=== PATIENT | male | born 1985 | race Caucasian/White ===

== ENCOUNTER 2017-01-16 08:21 | Outpatient (CLI) | payer OTHER | END 2017-01-16 08:22 | disposition home or self-care (01) | DX: Z00.00 Encounter for general adult medical examination without abnormal findings (principal); M25.551 Pain in right hip; M25.561 Pain in right knee; F10.20 Alcohol dependence, uncomplicated ==

== ENCOUNTER 2022-11-29 22:08 | Outpatient (CLI) | payer BC ==
--- NOTE | 2022-11-30 08:13 | Ultrasound Report ---
PROCEDURE: Abdomen Complete INDICATIONS: RLQ ABDOMINAL PAIN TECHNIQUE: Real-time scanning was performed of the abdominal and retroperitoneal organs, with image documentatio n. COMPARISON: None. FINDINGS: Liver: Mildly increased liver echogenicity without posterior attenuation, probably mild hepatic steat osis. Gallbladder: Unremarkable. Biliary ducts: Intrahepatic bile ducts are non-dilated. Extrahepatic bile duct caliber measures 5 m m. Normal is 6-7 mm or less in diameter, or 10 mm or less post-cholecystectomy. Pancreas: Not well visualized due to overlying bowel gas. Spleen: Spleen is normal in size and homogeneous in echotexture. Kidneys: Kidneys are normal in size and echotexture. Right kidney measures 10.9 cm long; left kidne y measures 11.7 cm long. No hydronephrosis or nephrolithiasis. No solid masses. Aorta: Visualized aorta is normal in caliber at less than 3 cm. Iliacs: Proximal common iliac arteries are normal in caliber at less than 2.5 cm. IVC: Intrahepatic inferior vena cava is patent. Miscellaneous: No free abdominal fluid. IMPRESSION: No acute abnormality. Suspect mild hepatic steatosis. Reviewed by: Blaise Auguste on 11/30/2022 8:12 AM [facility] Approved by: Blaise Auguste on 11/30/2022 8:12 AM PST Station ID: [id number]
== END 2022-11-29 22:09 | disposition home or self-care (01) ==
LOC: DI 22:08
PROVIDERS: ATTEND Nurse Practitioner
DX: R10.31 Right lower quadrant pain (principal)

== ENCOUNTER 2024-01-16 08:00 | Outpatient (CLI) | payer BC ==
--- NOTE | 2024-01-16 16:41 | XRAY Report ---
Finger(s) LT HISTORY: 38 years of age, DISLOCATION OF LEFT LITTLE FINGER TECHNIQUE: Finger(s) LT COMPARISON: None. FINDINGS/IMPRESSION: Small avulsion fracture of the ulnar aspect of the fifth proximal phalangeal head. There is persisten t dorsal subluxation at the fifth proximal interphalangeal joint. Reviewed by: Ankita Trinidad MD on 01/16/2024 4:40 PM PDT Approved by: Ankita Trinidad MD on 01/16/2024 4:40 PM PDT Station ID: [id number]
== END 2024-01-16 23:59 | disposition home or self-care (01) ==
LOC: DI.S 08:00
PROVIDERS: ATTEND Emergency Medicine
DX: S62.617A Displaced fracture of proximal phalanx of left little finger, initial encounter for closed fracture (principal)